=== PATIENT | female | born 1960 | race Caucasian/White ===

== ENCOUNTER 2018-12-22 18:21 | Emergency (ER) | payer OTHER ==
--- NOTE | 2018-12-22 18:39 | Emergency Department Record ---
History of Present Illness - General Chief complaint: Lower Extremity Pain Stated complaint: R KNEE INJURY Time Seen by Provider: 12/22/18 18:30 Source: Patient - History of Present Illness Initial comments: The patient has had right posterior knee pain for the past 4 days while helping her family member with painting and going up and down ladders. She had been advised to take ibuprofen and heat alternated with ice to the back of her knee. She states it felt boggy in the back of her knee. Today just prior to arrival she was going down some stairs when that right knee suddenly gave way with a "pop," became very painful in the back, and would not support her weight. She went down onto the next step to a sitting position without injuring herself futher. The knee remains tender in the popliteal space. She denies other injury MD Complaint: Extremity pain - Related Data Home Medications Medication Instructions Recorded Confirmed Last Taken Levothyroxine Sodium 25 mcg PO DAILY 12/22/18 12/22/18 1 Day Ago ~12/21/18 Meloxicam 15 mg PO DAILY 12/22/18 12/22/18 1 Day Ago ~12/21/18 Sertraline HCl [Zoloft] 100 mg PO DAILY 12/22/18 12/22/18 1 Day Ago ~12/21/18 Allergies Allergy/AdvReac Type Severity Reaction Status Date / Time doxycycline Allergy VOMITING Verified 12/22/18 18:43 sulfamethoxazole Allergy VOMITING Verified 12/22/18 18:43 [From ] trimethoprim [From ] Allergy VOMITING Verified 12/22/18 18:43 Review of Systems Reviewed: No additional complaints except as noted below Constitutional: Reports: As per HPI. Denies: Chills, Fever, Malaise, Night sweats, Weakness, Weight change Eyes: Reports: As per HPI. Denies: Eye discharge, Eye pain, Photophobia, Vision change ENT: Reports: As per HPI. Denies: Congestion, Dental pain, Ear pain, Epistaxis, Hearing loss, Throat pain Respiratory: Reports: As per HPI. Denies: Cough, Dyspnea, Hemoptysis, Stridor, Wheezes Cardiovascular: Reports: As per HPI. Denies: Arrhythmia, Chest pain, Dyspnea on exertion, Edema, Murmurs, Orthopnea, Palpitations, Paroxysmal nocturnal dyspnea, Rheumatic Fever, Syncope Endocrine: Reports: As per HPI. Denies: Fatigue, Heat or cold intolerance, Polydipsia, Polyuria Gastrointestinal: Reports: As per HPI. Denies: Abdominal pain, Constipation, Diarrhea, Hematemesis, Hematochezia, Melena, Nausea, Vomiting Genitourinary: Reports: As per HPI. Denies: Abnormal menses, Discharge, Dyspareunia, Dysuria, Frequency, Hematuria, Incontinence, Retention, Urgency Musculoskeletal: Reports: As per HPI. Denies: Arthralgia, Back pain, Gout, Joint swelling, Myalgia, Neck pain Skin: Reports: As per HPI. Denies: Bruising, Change in color, Change in hair/nails, Lesions, Pruritus, Rash Neurological: Reports: As per HPI. Denies: Abnormal gait, Confusion, Headache, Numbness, Paresthesias, Seizure, Tingling, Tremors, Vertigo, Weakness Psychiatric: Reports: As per HPI. Denies: Anxiety, Auditory hallucinations, Depression, Homicidal thoughts, Suicidal thoughts, Visual hallucinations Hematological/Lymphatic: Reports: As per HPI. Denies: Anemia, Blood Clots, Easy bleeding, Easy bruising, Swollen glands Physical Exam - General General Appearance: Alert, Oriented x3, Cooperative, No acute distress - Head Head exam: Normal inspection - Eye Eye exam: Normal appearance, PERRL, EOMI. negative: Conjunctival injection Pupils: Normal accommodation - ENT ENT exam: Normal exam, Mucous membranes moist, Normal external ear exam, Normal orophraynx, TM's normal bilaterally Ear exam: Normal external inspection. negative: External canal tenderness Nasal Exam: Normal inspection. negative: Discharge, Sinus tenderness Mouth exam: Normal external inspection, Tongue normal Teeth exam: Normal inspection. negative: Dental caries Throat exam: Normal inspection. negative: Tonsillar erythema, Tonsillar exudate - Neck Neck exam: Normal inspection, Full ROM. negative: Tenderness - Respiratory Respiratory exam: Normal lung sounds bilaterally. negative: Respiratory distress - Cardiovascular Cardiovascular Exam: Regular rate, Normal rhythm, Normal heart sounds - GI/Abdominal GI/Abdominal exam: Soft, Normal bowel sounds. negative: Tenderness - Rectal Rectal exam: Deferred - exam: Deferred - Extremities Extremities exam: Normal inspection, Full ROM, Normal capillary refill, Tenderne ss (right knee with NO joint space tenderness, no patellar or anterior tenderness, patellar mechanism intact and functioning. No visible effusion, erythema, or warmth. No calf tenderness. Posterior knee is nontender to palpation but feels swollen and boggy when compared to left posterior knee.). negative: Calf tenderness, Pedal edema - Back Back exam: Reports: Normal inspection, Full ROM. Denies: Muscle spasm, Rash noted, Tenderness - Neurological Neurological exam: Alert, CN II-XII intact, Normal gait, Oriented X3, Reflexes normal - Psychiatric Psychiatric exam: Normal affect, Normal mood - Skin Skin exam: Dry, Intact, Normal color, Warm Course repeat exam after xray shows bogginess in popliteal fossa consistent with Benz's cyst. - Reevaluation(s) Reevaluation #1: Explained to patient that this may be a ruptured Benz's cyst but no ultrasound is available on weekends at this facility. Patient understands US situation and will follow up with Dr. Turcios her PCP in the office. 12/22/18 19:18 Medical Decision Making - Management Options MDM Management: No Additional Work-up Planned (PCP follow up in office.) - Data Complexity MDM Data: X-Ray Ordered and/or Reviewed (Right knee xray: Negative per ED physician.) Disposition Disposition: Discharge Clinical Impression: Right knee buckling, Benz's cyst, ruptured Disposition: Home Health Service Condition: (1) Good Instructions: Bakers Cyst (ED), Knee Pain (ED), Knee Immobilizer (ED) Additional Instructions: Knee immobilizer, crutches for ambulation only as needed. Ice, elevate. Ibuprofen alternated with tylenol as directed as needed for pain. PCP follow up Monday for recheck. Forms: Patient Portal Access Quality - Quality Measures Quality Measures: N/A - Blood Pressure Screening Does Patient Have Any of the Following: No Blood Pressure Classification: Hypertensive Reading Systolic Measurement: 154 Diastolic Measurement: 108 Screening for High Blood Pressure: < Pre-Hypertensive BP, F/U Documented > [G8950] Pre-Hypertensive Follow-up Interventions: Follow-up with rescreen every year.
--- NOTE | 2018-12-22 22:35 | RADIOLOGY REPORT ---
EXAM: KNEE, RIGHT 4 VIEWS HISTORY: RIGHT KNEE GAVE WAY WITH PAIN BACK OF RIGHT KNEE. TECHNIQUE: Five views right knee. COMPARISON: No prior right knee series. ENCOUNTER: Initial. FINDINGS: The right knee appears intact with no definite fracture or dislocation seen. There may be a small joint effusion present. IMPRESSION: POSSIBLE SMALL JOINT EFFUSION. NO DEFINITE FRACTURE OF THE RIGHT KNEE IDENTIFIED. JOB NUMBER: [id number] MTDD
== END 2018-12-22 19:57 | disposition home health service (06) ==
LOC: ER 18:21
DX: S86.811A Strain of other muscle(s) and tendon(s) at lower leg level, right leg, initial encounter (principal); X50.3XXA Overexertion from repetitive movements, initial encounter; Y93.89 Activity, other specified
CPT/HCPCS: 99283

== ENCOUNTER 2019-02-14 08:07 | Day surgery (SDC) | payer OTHER ==
[2019-02-14] MEDS ORDERED: ONDANSETRON HCL IV 4 MG/2 ML VIAL IVP ONE (08:08)
[2019-02-14] MEDS ORDERED: MIDAZOLAM HCL 2MG/2ML VIAL IV ONE (08:08)
[2019-02-14] MEDS ORDERED: SEVOFLURANE 250 ML INH ONE (08:08)
[2019-02-14] MEDS ORDERED: LIDOCAINE 2% MDV (20MG/ML) 20ML VIAL IV ONE (08:08)
[2019-02-14] MEDS ORDERED: PROPOFOL 10 MG/ML VIAL IV ONE (08:08)
[2019-02-14] MEDS ORDERED: KETOROLAC 30 MG/ML VIAL IVP ONE (08:08)
[2019-02-14] MEDS ORDERED: FENTANYL PF 100MCG/2ML VIAL IV ONE (08:08)
[2019-02-14] MEDS: RINGERS SOLUTION,LACTATED 1,000 ML IV ONE (08:35)
[2019-02-14] MEDS: ACETAMINOPHEN 1,000 MG/100 ML BTL IVPB ONE (08:54)
[2019-02-14] MEDS: BUPIVACAINE 0.25% W/EPI MPF 30ML VIAL SQ ONE (10:12)
[2019-02-14] MEDS: HYDROCODONE/APAP 5/325MG TABLET PO ONE (11:11)
--- NOTE | 2019-02-15 11:20 | Operative Note ---
DATE OF SURGERY: 02/14/2019 SURGEON: Spike Bateman DO PREOPERATIVE DIAGNOSIS: Torn medial meniscus of the right knee. POSTOPERATIVE DIAGNOSES: 1. Torn medial meniscus of the right knee. 2. Chondromalacia of the medial femoral condyle and patella, right knee. OPERATION: 1. Arthroscopic partial medial meniscectomy, right knee. 2. Arthroscopic chondroplasty of the patella and medial femoral condyle, right knee. DESCRIPTION OF PROCEDURE: This 58-year-old female was taken to the operating room and placed in the supine position on the operating room table. The right lower extremity was elevated, exsanguinated, and the tourniquet inflated to 300 mmHg. Arthroscopic knee fuentes applied. Right knee prepped with Hibiclens and draped in the usual sterile fashion. An inferolateral portal was established for the 4 mm arthroscope, and initial evaluation of the joint demonstrated normal appearance of the suprapatellar pouch but grade 2 chondromalacia was noted of the patella mostly on the lateral facet. Chondroplasty was performed to stabilize the articular cartilage through an inferomedial portal. The medial and lateral gutters were found to be normal. The trochlea was also normal. The medial compartment was entered, and a root tear of the posterior horn of the medial meniscus was present. Large clump of meniscal tissue was present there. This was debrided utilizing the rotating shaver and basket forceps. It was smoothed, trimmed, and balanced to stable meniscal rim. It was re-probed and confirmed to be stable. There was grade 2 chondromalacia of the medial femoral condyle in an area of about 1.5 to 2 cm in greatest diameter mostly on the lateral side of the medial femoral condyle. The tibial appeared normal. After resection, both the articular cartilage and meniscus were probed and found to be stable. The intracondylar notch demonstrated normal appearance of the ACL. The lateral compartment was entered, and no pathology was identified after probing the articular cartilage and meniscus of the lateral compartment. The joint was then copiously irrigated and suctioned. The instruments were removed. The portals infiltrated with 0.25% Marcaine with epinephrine. Sterile dressings applied, tourniquet and knee fuentes released, and the patient taken to the recovery room in satisfactory condition. GROSS PATHOLOGY: This patient demonstrated grade 2 chondromalacia of the patella and medial femoral condyle as well as tear of the medial meniscus as described. MTDD
== END 2019-02-14 11:30 | disposition home or self-care (01) ==
LOC: SUR 08:07
PROVIDERS: ATTEND Orthopaedic Surgery
DX: S83.241A Other tear of medial meniscus, current injury, right knee, initial encounter (principal); M22.41 Chondromalacia patellae, right knee; E03.9 Hypothyroidism, unspecified; K21.9 Gastro-esophageal reflux disease without esophagitis
CPT/HCPCS: J1885; J2405; J7120